=== PATIENT | male | born 2000 | race Hispanic/Latino ===

== ENCOUNTER 2023-08-25 15:36 | Emergency (ER) | payer OTHER ==
[~2023-08-25] VITALS: Ht 175.3 cm; Wt 60.6 kg
[2023-08-25 17:25] VITALS: BP 107/63; TEMP 97.2; O2SAT 100
== END 2023-08-25 17:26 | disposition home or self-care (01) ==
LOC: M ED 15:36
DX: S60.022A Contusion of left index finger without damage to nail, initial encounter (principal); W23.2XXA Caught, crushed, jammed or pinched between a moving and stationary object, initial encounter; Y92.009 Unspecified place in unspecified non-institutional (private) residence as the place of occurrence of the external cause; Y93.9 Activity, unspecified; Y99.9 Unspecified external cause status